=== PATIENT | male | born 1970 | race Caucasian/White ===

== ENCOUNTER 2022-08-25 08:23 | Outpatient (CLI) | payer OTHER, BC, SELFPAY ==
--- NOTE | 2022-08-25 08:45 | CRLHL7_ITS ---
For Patients: As a result of the Century Cures Act, medical imaging exams and procedure reports are released immediately into your electronic medical record. You may view this report before your referring provider. If you have questions, please contact your health care provider. INDICATION: Left calf pain. COMPARISON: None available. FINDINGS: Ultrasound of the venous drainage of the left lower extremity shows no evidence of deep venous thrombosis. There is normal antegrade flow from the posterior tibial and popliteal veins superiorly through the common femoral vein. There is normal augmentation and compressibility of these veins. The right common femoral vein is widely patent. The area of pain as indicated is in the superior medial left calf. While not formally evaluated, there is suggestion of intermuscular and intramuscular fluid/edema. This can be seen in muscle injury. If this requires definitive imaging, MRI would be the study of choice IMPRESSION: 1. There is no evidence of left lower extremity deep venous thrombosis. 2. Please review the comment regarding the left calf muscles. Dictated by Ramirez Neville MD @ 08/25/2022 9:09:04 AM (Electronically Signed)
== END 2022-08-25 08:24 | disposition home or self-care (01) ==
PROVIDERS: Visit Provider Physician Assistant
DX: M79.605 Pain in left leg (principal)
CPT/HCPCS: 93971

== ENCOUNTER 2022-09-06 08:29 | Outpatient (CLI) | payer OTHER, BC, SELFPAY | END 2022-09-06 08:30 | disposition home or self-care (01) | PROVIDERS: Visit Provider Physician Assistant | DX: M25.562 Pain in left knee (principal); M23.222 Derangement of posterior horn of medial meniscus due to old tear or injury, left knee; M25.462 Effusion, left knee | CPT/HCPCS: 73721 ==

== ENCOUNTER 2022-10-25 09:56 | Day surgery (SDC) | payer OTHER, SELFPAY ==
[2022-10-25] VITALS (10 sets, daily range): BP systolic 88–120; BP diastolic 51–85; PULSE 60–83; RESP 16; TEMP 36–36.3; O2SAT 96–100; BMI 22.5
--- NOTE | 2022-10-25 10:23 | SUR.PREOP ---
pt states he recently fell and bruised his ribs. having a fair amount of pain from that injury
[2022-10-25] MEDS: SODIUM CHLORIDE 0.9 % (FLUSH) 10 ML SYRINGE IVF (10:42)
[2022-10-25] MEDS: LACTATED RINGERS 1000 ML 1,000 ML 100 ML IV (10:42)
[2022-10-25] MEDS: BUPIVACAINE 0.25% 30 ML INJECTION (11:46)
--- NOTE | 2022-10-25 11:50 | P.ORPRC_ITS ---
Procedure Note Date of procedure: 10/25/22 Procedure: SURGEON: Bruno Galicia MD HEAD SULFIDE OPERATOR: Emily Mccollum PA-C PREOPERATIVE DIAGNOSIS: Left knee displaced bucket-handle tear, medial meniscus POSTOPERATIVE DIAGNOSIS: Left knee displaced bucket-handle tear, medial meniscus NAME OF OPERATION: Left knee arthroscopic partial medial meniscectomy ANESTHESIA: Spinal ESTIMATED BLOOD LOSS: 0 mL COMPLICATIONS: None SPECIMENS: None DRAINS: None PREOPERATIVE ANTIBIOTICS: Ancef 2 gram INDICATIONS: The patient is a 52-year-old with a history of left knee medial pain. MRI scan is consistent with a displaced medial meniscus bucket-handle tear. Despite appropriate nonoperative management, including activity modification, antiinflammatories, [id number] pain medication, bracing, physical therapy, and injections they continue to have pain and disability. Operative intervention was offered. The risks, benefits and expected outcomes were discussed in detail. These included but were not limited to: Infection, bleeding, injury to blood vessel or nerve, venous thromboembolism. All questions were answered to their satisfaction. PROCEDURE: Spinal anesthesia was administered. The patient was placed supine on the operating room table. The left lower extremity was prepped and draped in the usual sterile fashion. The limb was exsanguinated with the Luis bandage. The pneumatic tourniquet was inflated to 300 mmHg. A standard anterolateral portal was established. The arthroscope was introduced. The working portal was established anteromedially. Diagnostic arthroscopy was performed with findings as follows: The suprapatellar pouch is normal. Articular surface on the patella is normal. Articular surface on the trochlea is normal. The medial gutter is normal. The medial compartment shows normal articular cartilage on the medial femoral condyle and medial tibial plateau. The medial meniscus has a displaced bucket- handle tear. The notch shows the ACL to be intact. The lateral compartment shows normal articular cartilage on the lateral femoral condyle and lateral tibial plateau. The lateral meniscus is normal. The lateral gutter is normal. Tissue quality of the medial meniscus is quite poor. Therefore, primary repair was not indicated. We completed the tear anteriorly with the basket, then resected the displaced portion with the shaver. The baskets and Spencer were used through both portals, to contour the peripheral rim to a stable base. Arthroscopic instruments were removed, the portal sites were Steri-Stripped closed, the knee was infiltrated with 30 mL of 0.25% Marcaine without epinephrine. A dry dressing was applied, the tourniquet was released. Sponge and needle counts were correct x 2. The patient tolerated the procedure well. There were no apparent complications. They were carefully transferred to the hospital bed and taken to the postanesthesia care unit in satisfactory condition. PLAN: The patient will be discharged to home. They may weightbear as tolerates. Range of motion will be unrestricted. They will follow up in the office next week for a wound check.
--- NOTE | 2022-10-25 12:03 | W.ANESCHARGE ---
Anesthesia Charges Start Date/Time Anesthesia Start Date: 10/25/22 Anesthesia Start Time: 10:57 Stop Date/Time Anesthesia Stop Date: 10/25/22 Anesthesia Stop Time: 12:05 Summary Emergency: No
--- NOTE | 2022-10-25 12:59 | W.ANESCHARGE ---
Anesthesia Charges Start Date/Time Anesthesia Start Date: 10/25/22 Anesthesia Start Time: 10:57 Stop Date/Time Anesthesia Stop Date: 10/25/22 Anesthesia Stop Time: 12:05 Summary Emergency: No
== END 2022-10-25 13:47 | disposition home or self-care (01) ==
PROVIDERS: Visit Provider Orthopaedic Surgery
PROC: (CPT 29870; principal; 2022-10-25 11:30)
DX: S83.212A Bucket-handle tear of medial meniscus, current injury, left knee, initial encounter (principal); M25.562 Pain in left knee
CPT/HCPCS: 29881; 01400; 97116; 97161; J1100; J2250; J2400; J2405; J2704; J3010; J3490; J7120